=== PATIENT | female | born 1955 | race Caucasian/White ===

== ENCOUNTER 2016-09-06 10:43 | Day surgery (SDC) | payer MEDICARE ==
[~2016-09-06 10:43] MED LIST: ARIXTRA2.5 MG/0.5 SQ; ASPIRIN81 M1 PO; CALCIUM MAGNES1 EAC1 PO; CELEBREX200 MG PO; CHLORASEPTIC LO1 LOZ MM; CYMBALTA30 MG PO; FISH OIL 11000 MG/CA PO; FLEXERIL10 MG PO; GABAPENTIN400 MG PO; GLUCOSAMINE & C1 CAP PO; LOVASTATIN10 M1 PO; MAALOX PLUS X-355 ML PO; MILK OF MAGNES311 MG PO; MOBIC7.5 M2 PO; NEXIUM40 MG PO; NUCYNTA50 MG PO; OMEPRAZOLE40 M2 PO; PERCOCET 5MG/AP1 TA1 PO; PRILOSEC40 MG PO; SENNA LAXATIVE1 EACH PO; TRAZODONE50 MG PO; TUMS500 M1 PO; TYLENOL500 MG PO; ULTRAM50 MG PO; XARELTO10 MG PO
[2016-09-06 12:12] LABS: BASO % 1.1 % (0-2); BASO ABSOLUTE COUNT 0.1 tho/cmm (0.0-0.2); EOS % 3.4 % (0-7); EOSINOPHIL ABSOLUTE COUNT 0.2 tho/cmm (0.0-0.7); HCT-HEMATOCRIT 39.3 % (34.0-49.0); HGB-HEMOGLOBIN 13.3 gm/dl (12.0-15.5); IMMATURE GRANULOCYTES ABSOLUTE 0.01 tho/cmm (0-0.03); IMMATURE GRANULOCYTES PERCENT 0.2 % (0-0.3); LYMPH % 29.6 % (20-45); LYMPH ABSOLUTE COUNT 1.6 tho/cmm (0.8-4.5); MCH (MEAN CORPUSCULAR HGB) 29.6 pg (28.0-32.0); MCHC MEAN CORPUSCULAR HGB CONC 33.8 % (32.0-36.0); MCV (MEAN CELL VOLUME) 87.5 fl (82.0-96.0); MEAN PLATELET VOLUME 9.4 cmc (9.4-12.4); MONOCYTE ABSOLUTE COUNT 0.7 tho/cmm (0.0-1.2); NEUTROPHIL ABSOLUTE COUNT 2.8 tho/cmm (1.6-8.0); NEUTROPHIL-AUTOMATED 2.8 tho/cmm (1.6-8.0); NEUTROPHILS % 52.7 % (40-80); PLATELET COUNT 372 tho/cmm (150-450); RED BLOOD COUNT 4.49 mil/cmm (4.00-5.20); RED CELL DISTRIBUTION WIDTH 13.5 % (12.4-16.4); WHITE BLOOD COUNT 5.3 tho/cmm (4.0-10.0)
[2016-09-06 12:24] LABS: ANION GAP 12 mmol/L (0-20); BLOOD UREA NITROGEN 14 mg/dl (6-24); CALCIUM 8.5 mg/dl (8.5-10.5); CARBON DIOXIDE-VENOUS 27 mmol/L (22-32); CHLORIDE 105 mmol/l (96-110); CREATININE 0.66 mg/dl (0.50-1.10); GLUCOSE 95 mg/dL (70-110); POTASSIUM 4.3 mmol/L (3.7-5.1); SODIUM 140 mmol/L (135-145); eGFR VALUE FOR BLACK >90 mL/Min
[2016-11-20] MEDS ORDERED: TRAZODONE HCL100 M1 PO (16:47)
[2016-11-21] MEDS ORDERED: MULTIVITAMINS1 EAC7 PO (13:09)
[2016-11-21] MEDS ORDERED: KRILL OIL500 M1 PO (13:09)
[2016-11-21] MEDS ORDERED: ULTRAM50 M1 PO (13:12)
[2016-11-21] MEDS ORDERED: ACIDOPHILUS1 EAC3 PO (13:13)
[2016-11-21] MEDS ORDERED: MELATONIN3 M4 PO (13:14)
[2016-11-21] MEDS ORDERED: SUPER B-50 COM1 EACH PO (13:14)
[2016-11-21] MEDS ORDERED: VITAMIN E1000 UNI2 PO (13:21)
[2016-12-09] MEDS ORDERED: ASPIRIN81 M1 PO (09:16)
[2016-12-09] MEDS ORDERED: ULTRAM50 M1 PO (09:17)
[2016-12-09] MEDS ORDERED: ROXICODONE5 M2 PO (09:18)
[2016-12-09] MEDS ORDERED: TYLENOL325 M2 PO (09:19)
[2016-12-09] MEDS ORDERED: ZOFRAN4 M2 PO (10:01)
[2016-12-09] MEDS ORDERED: CELEBREX200 M1 PO (13:18)
== END 2016-09-06 15:10 ==
LOC: SRG 10:43 → SHSB 10:44 → ORW 13:11 → SHSB 14:00
PROVIDERS: Urology
PROC: 01PY0MZ Removal of Neurostimulator Lead from Peripheral Nerve, Open Approach (ICD-10-PCS; principal; 2016-09-06)
PROC: 0JPT0MZ Removal of Stimulator Generator from Trunk Subcutaneous Tissue and Fascia, Open Approach (ICD-10-PCS; 2016-09-06)
DX: T83.190A Other mechanical complication of urinary electronic stimulator device, initial encounter (principal); M19.90 Unspecified osteoarthritis, unspecified site; M79.7 Fibromyalgia; K21.9 Gastro-esophageal reflux disease without esophagitis; Z79.1 Long term (current) use of non-steroidal anti-inflammatories (NSAID); Z79.82 Long term (current) use of aspirin; Z79.899 Other long term (current) drug therapy; Z87.440 Personal history of urinary (tract) infections; Z90.710 Acquired absence of both cervix and uterus; Z90.721 Acquired absence of ovaries, unilateral; Z98.890 Other specified postprocedural states
CPT/HCPCS: J0690